=== PATIENT | female | born 1995 | race Two or more races ===

== ENCOUNTER 2024-06-24 09:43 | Inpatient (IN) ==
[2024-06-24] MEDS ORDERED: ZOFRAN INJ 4 MG VIAL IVP PRN (09:48)
[2024-06-24] MEDS ORDERED: REGLAN INJ 10 MG VIAL IVP PRN (09:48)
[2024-06-24] MEDS ORDERED: NUBAIN INJ 20 MG AMP IVP PRN (09:48)
[2024-06-24] MEDS: D5 1/2 NS 1,000 ML 1,000 ML IV SCH (09:55)
[2024-06-24] MEDS: AMPICILLIN VIAL 2 GRAM 2 G in NS 100 ML IV + SPIKE MINIBAG* 100 ML IV SCH (10:00)
--- NOTE | 2024-06-24 10:36 | DR.OB ---
OB QUICK NOTE Assessment/Plan (1) Active labor at term: Assessment/Plan: L&D 06/24/24 at 10:30am S-No complaint except pain with CTX. O-Afebrile,VSS EKT=506 with good LTV, +accel, no decel. CTX=q 1 1/2 to 3 min., mod. by palpation CVX=5cm/100%/0/VTX AROM of small forebag with clear fluid. IUPC and FSE placed. A-IUP at 39 2/7 weeks in active labor SROM +GBS P-Begin pitocin induction IV ABX in labor F/U labs Anticipate
[2024-06-24] MEDS: NAROPIN EPIDURAL 0.2% 100 ML ONE (10:58)
[2024-06-24] MEDS: FENTANYL VIAL INJ 100 mcg ONE (11:05)
[2024-06-24] MEDS: OXYTOCIN 20 UNIT/1,000 ML-NS 20 UNIT/1,000 ML PLAST..BAG IV PRN (11:15)
--- NOTE | 2024-06-24 12:41 | DR.OB ---
OB QUICK NOTE Assessment/Plan (1) Active labor at term: Assessment/Plan: L&D 06/24/24 at 11:55am Pitocin=4mu/min. S-No complaint. s/p epidural. O-Afebrile,VSS IUB=951 with good LTV, +accel, no decel. CTX=q 1 1/2 to 2 min., about 45-55mmHg CVX=7cm/100%/0/VTX A-IUP at 39 2/7 weeks in active labor SROM +GBS P-Cont. pitocin induction Cont. IV ABX in labor Anticipate
[2024-06-24] MEDS: AMPICILLIN VIAL 1 GRAM 1 G in NS 50 ML IV + SPIKE MINIBAG* 50 ML IV SCH (13:41)
[2024-06-24] MEDS: PITOCIN IVP ONE (14:54)
--- NOTE | 2024-06-24 15:10 | DR.OB ---
OB QUICK NOTE Assessment/Plan (1) Active labor at term: Assessment/Plan: Delivery Note [employer] 06/24/24 at 2:48pm Patient complete and pushing. Head delivered over intact perineum. Nose and mouth bulb suctioned. Compound presentation with left hand to face noted. Nuchal cord x 1 noted and reduced easily. Body delivered over intact perineum. Cord clamped x 2 and cut. Infant handed to attendant. Cord sent for gases. Placenta delivered spontaneously / intact / 3 vessel cord. No CVX tears noted. A small second degree tear noted to patient left---repaired with 0-vicryl in usual fashion with good hemostasis. Viable male infant delivered by , VTX/OA, wt=7'6" and 8/9, stable to NBN. Mother stable to RR. JPY=[id number].
[2024-06-24] MEDS: AMPICILLIN VIAL 1 GRAM ONE (15:38)
[2024-06-24] MEDS: NS 100 ML IV 100 ML ONE (15:38)
[2024-06-24] MEDS ORDERED: MILK OF MAGNESIA PO PRN (15:44)
[2024-06-24] MEDS ORDERED: MOTRIN TAB 800 MG PO PRN (15:44)
[2024-06-24] MEDS ORDERED: AMBIEN PO PRN (15:44)
[2024-06-24] MEDS: OXYTOCIN 20 UNIT/1,000 ML-NS 20 UNIT/1,000 ML PLAST..BAG IV SCH (16:42)
[2024-06-24] MEDS: MOTRIN TAB 800 MG PO PRN (17:15)
[2024-06-25 05:06] LABS: HEMATOCRIT 28.5 % (36.0-47.0); HEMOGLOBIN 9.7 g/dL (12.0-16.0)
[2024-06-25] MEDS: ADACEL or BOOSTRIX TDaP VACCINE IM ONE (05:45)
[2024-06-25] MEDS: PRENATAL PLUS PO SCH (09:15)
[2024-06-25] MEDS: MYLICON TAB 80 MG CHEW PO PRN (21:54)
[2024-06-25] MEDS: DERMOPLAST PAIN RELIEF SPRAY TOP PRN (21:54)
[2024-06-26 07:47] VITALS: BP 118/79; PULSE 81; TEMP 98.1; O2SAT 98
[2024-06-26 07:57] VITALS: RESP 18
== END 2024-06-26 11:15 | disposition home or self-care (01) | DRG 806 ==
LOC: LD 09:52 → MED/SURG 16:17
PROVIDERS: ADMIT Specialist; ATTEND Specialist
DX: Z37.0 Single live birth; O70.1 Second degree perineal laceration during delivery; O98.82 Other maternal infectious and parasitic diseases complicating childbirth; O26.893 Other specified pregnancy related conditions, third trimester; Z3A.39 39 weeks gestation of pregnancy; B95.1 Streptococcus, group B, as the cause of diseases classified elsewhere